=== PATIENT | female | born 1995 | race Caucasian/White ===

== ENCOUNTER 2016-08-31 22:12 | Observation (INO) ==
[2016-08-31 22:52] VITALS: BP 107/58
--- NOTE | 2016-09-01 07:23 | Discharge Summary ---
Date of Encounter: 09/01/16 Time of Encounter: 07:21 - Discharge Diagnosis (1) 38 weeks gestation of Priority: Primary Status: Acute Comments: admit for observation for labor evaluation (2) NST (non-stress test) reactive Priority: Secondary Status: Acute Comments: Reactive nst. FHR 125 bpm moderate variability +15x15 accels no decels noted. Contractions 2-3 min apart. Cat. 1 tracing. - Discharge Medications Allergies/Adverse Reactions: Allergies No Known Allergies Allergy (Verified 08/31/16 22:52) Date of admission: 08/31/16 22:12 Discharging clinician: Diana Mullins Anticipated date of discharge: 09/01/16 - Patient Status Disposition: Home, Self-Care Condition: Good Functional capacity at discharge: independent ambulation - Discharge Instructions - Diet and Activity Activity: increase activity as tolerated Diet: regular diet Hospital Course [employer] Time Attestation: Total time spent providing and/or coordinating discharge services: Exam - Constitutional Vitals: Temp Pulse Resp BP 97.0 F L 115 18 107/58 08/31/16 22:31 08/31/16 22:31 08/31/16 22:31 08/31/16 22:31 - Other Additional findings: Patient assessed by RN. NST reactive. FHT 125 bpm moderate variability +15x15 accels no decels noted. Contractions 2-3 min apart. cat. 1 tracing. - VTE Reasons for not Prescribing Prophylaxis: Treatment not Indicated - Low risk for VTE
== END 2016-09-01 01:20 | disposition home or self-care (01) ==
LOC: 1NENULAB
PROVIDERS: ADMIT Obstetrics & Gynecology; ATTEND Obstetrics & Gynecology

== ENCOUNTER 2016-09-04 04:00 | Inpatient (IN) ==
[2016-09-04 06:00] LABS: Basophils % 0.2 %; Eosinophils # 0.1 K/mcL (0.0-0.6); Eosinophils % 0.7 %; Hematocrit 30.5 % (35.3-44.9); Hemoglobin 10.3 g/dL (11.5-15.4); Immature Granulocytes % 1.7 % (0-4); Lymphocytes # 2.9 K/mcL (0.6-4.6); Lymphocytes % 17.3 %; Mean Corpuscular HGB Conc 33.8 g/dL (31.6-35.5); Mean Corpuscular Hemoglobin 30.7 pg (28.0-33.3); Mean Corpuscular Volume 90.8 fL (83.0-100.0); Monocytes % 11.9 %; Neutrophils # 11.4 K/mcL (1.6-8.9); Platelet Count 394 K/mcL (140-400); Red Blood Count 3.36 M/mcL (3.82-4.97); Red Cell Distribution Width 15.8 % (11.5-14.5); Segmented Neutrophils % 68.2 %
[2016-09-06 10:19] VITALS: BP 118/78
== END 2016-09-06 12:10 | disposition home or self-care (01) | DRG 775 ==
LOC: 1NENULAB 04:18 → 1NENUOBS 22:17
PROVIDERS: ADMIT Advanced Practice Midwife; ATTEND Advanced Practice Midwife